=== PATIENT | female | born 1945 | race Asian ===

== ENCOUNTER 2021-05-09 10:51 | Outpatient (CLI) | payer MEDICARE, OTHER ==
--- NOTE | 2021-05-09 16:44 | Ultrasound Report ---
PROCEDURE: Duplex Lwr Ext Arterial Bilat INDICATIONS: CLAUDICATION TECHNIQUE: Color and pulse Doppler interrogation was performed of both lower extremity arterial systems, with im age documentation. COMPARISON: None FINDINGS: Right lower extremity: Common femoral artery: 112 cm/sec, with biphasic flow. Deep femoral artery: 90 cm/sec, with triphasic flow. Proximal superficial femoral artery: 90 cm/sec, with biphasic flow. Mid superficial femoral artery: 127 cm/sec, with biphasic flow. Distal superficial femoral artery: 92 cm/sec, with biphasic flow. Popliteal artery: 53 cm/sec, with biphasic flow. Posterior tibial artery: 81 cm/sec, with biphasic flow. Anterior tibial artery/dorsalis pedis: 73 cm/sec, with biphasic flow. [facility]onzo-scale imaging description: Normal Left lower extremity: Common femoral artery: 95 cm/sec, with triphasic flow. Deep femoral artery: 94 cm/sec, with triphasic flow. Proximal superficial femoral artery: 92 cm/sec, with biphasic flow. Mid superficial femoral artery: 125 cm/sec, with biphasic flow. Distal superficial femoral artery: 114 cm/sec, with biphasic flow. Popliteal artery: 70 cm/sec, with biphasic flow. Posterior tibial artery: 74 cm/sec, with biphasic flow. Anterior tibial artery/dorsalis pedis: 78 cm/sec, with biphasic flow. [place]zo-scale imaging description: Normal IMPRESSION: No evidence of arterial insufficiency to the bilateral lower extremities. Reviewed by: Chencho Whyte MD on 05/09/2021 4:42 PM PDT Approved by: Chencho Whyte MD on 05/09/2021 4:42 PM PDT Station ID: [id number]
== END 2021-05-09 10:52 | disposition home or self-care (01) ==
LOC: DI 10:51
PROVIDERS: ATTEND Internal Medicine
DX: I70.219 Atherosclerosis of native arteries of extremities with intermittent claudication, unspecified extremity (principal)
CPT/HCPCS: 93925